=== PATIENT | female | born 1990 | race Caucasian/White ===

== ENCOUNTER 2016-10-04 16:50 | Emergency (ER) | payer OTHER ==
[~2016-10-04] VITALS: Ht 170.2 cm; Wt 146.2 kg
[~2016-10-04 16:50] MED LIST: AUGMENTIN875 MG PO; CHERATUSSIN AC473 ML PO; INDOCIN25 MG PO; MEDROL DOSEPAK4 MG PO; NOHOMEMEDS; VENTOLIN HFA18 GM IH; Vicodin,Lortab 5/500 PO; oxyCODONE PO
[2016-10-04] MEDS ORDERED: HYCODAN SYRUP480 ML PO (18:34)
[2016-10-04 18:40] VITALS: BP 148/93
== END 2016-10-04 18:59 | disposition home or self-care (01) ==
LOC: RME 16:50 → EME 16:50 → RME 18:59
DX: J40 Bronchitis, not specified as acute or chronic (principal); Z91.013 Allergy to seafood; Z91.040 Latex allergy status
CPT/HCPCS: 36600; 82803; 99281; 99284; J1100